=== PATIENT | female | born 1965 | race Caucasian/White ===

== ENCOUNTER → 2017-06-04 | Day surgery (SDC) | payer OTHER ==
--- NOTE | 2017-06-03 16:39 | History & Physical Pre-Op ---
General Information and HPI History of Present Illness: Marylu is a 52-year-old female with a long-standing and worsening complaint of a painful heel spur left foot. Patient is undergone an extended course of conservative care, including shoe gear and activity modification, rest, immobilization course of NSAIDs. None of this is yielded her any significant relief. The patient since and a pressure preoperative surgical consultation. The patient was referred to our office from Ruel Barnhart DPM. Allergies/Medications Allergies: Coded Allergies: MDX - [place] (LITHIUM) (Mild, DIARRHEA AND NAUSEA 03/23/13) Past History Medical History Cardiovascular: hypertension Endocrine: hypothyroidism Surgical History Pertinent Surgical History: (Back fusion) Review of Systems Review of Systems: Review of systems unremarkable except for that noted in history of present illness Exam & Diagnostic Data Physical Exam: Lungs clear bilaterally. Heart sounds rate and rhythm regular. Lower extremity physical exam demonstrates intact pedal pulses bilaterally. Both dorsalis pedis and posterior tibial arteries are palpable bilaterally. Patient without any sensory motor deficits. Deep tendon reflexes grossly intact. Patient noted estimated pain with palpation to the anteromedial heel left. Tinel sign noted with percussion the posterior tibial nerve. Assessment/Plan Assessment/Plan: Painful heel spur left foot. A lengthy discussion reviewing both surgical and conservative options was held the patient at bedside and the patient elects to go forward with surgery despite the risks. As Ranked By This Provider Problem List: 1. Calcaneal spur of left foot Attending MD Review Statement Attending Statement Attending MD Statement: examined this patient
[~2017-06-04] VITALS: Ht 152.4 cm; Wt 107.5 kg
--- NOTE | 2017-06-04 11:27 | Operative Report ---
Operative/Inv Procedure Report Surgery Date: 06/04/17 Name of Procedure: 1 excision of heel spur left foot 2 intraoperative administration of ankle block anesthesia Pre-Operative Diagnosis: 1 painful, enlarging heel spur left foot Post-Operative Diagnosis: The same Estimated Blood Loss: scant Surgeon/Recreation Facilities Supervisor: Deondre Reyes DPM, DPM Anesthesia: moderate sedation, block Operative/Procedure Note Note: After obtaining informed consent the patient was brought to the operating room and placed on the operating table in the prone position. After administration of IV sedation, 10 mL of 0.5% Marcaine plain was infiltrated about the patient's left ankle. A well-padded ankle tourniquet was placed about the patient's left lower extremity. 2 g of Ancef were delivered intravenously times one dose. A 6 cm linear incision was made over the lateral aspect of the posterior heel. Dissection was then carried down to the subtenons tissues were all vital neurovascular structures were identified protected. The lateral margin of the Achilles was reflected off the posterior heel exposing the bone spur. This was then removed with a osteotome and mallet. It was then smoothed with a rongeur and bone rasp. The wound was irrigated cuff Svensson normal sterile saline. The Achilles tendon was repaired 2-0 Vicryl subtenons tissues report with 3-0 Vicryl. Skin edges reprepped for nylon. Incision was dressed with Xeroform 4 x 4's Kerlix and an Juan Jose wrap. Patient noted tolerable to procedure and anesthesia well and the patient was transported from the operating room to recovery by sent stable best assess intact all digits left foot. EC a copy of this dictation to Ruel Barnhart DPM.
== END ==
LOC: STS 00:41
DX: M77.32 Calcaneal spur, left foot (principal); I10 Essential (primary) hypertension; E03.9 Hypothyroidism, unspecified
CPT/HCPCS: J0690; J2001; J2250